=== PATIENT | male | born 1975 | race Caucasian/White ===

== ENCOUNTER 2018-09-10 11:39 | Emergency (ER) | payer BC ==
[2018-09-10 13:28] LABS: Urine Blood NEGATIVE (NEG); Urine Glucose NEGATIVE (NEG); Urine Protein NEGATIVE (NEG)
[2018-09-10 13:57] LABS: Potassium 4.2 mmol/L (3.5-5.1)
--- NOTE | 2018-09-10 14:08 | EDPHYS ---
Physician Documentation [facility] Name: Christian Tatmu II Age: 43 yrs Sex: Male : 1975 Arrival Date: 09/10/2018 Time: 11:42 Bed 20 Private MD: Tree Castillo ED Physician Bienvenido Patel HPI: 09/10 14:03 This 43 yrs old Male presents to ER via Ambulatory with complaints of Back kb Pain. 14:03 The patient presents with pain that is acute, and tenderness. The symptoms are located kb in the left low back and left mid back. The pain does not radiate. 14:03 Onset: The symptoms/episode began/occurred 2 week(s) ago. Associated signs and kb symptoms: The patient has no apparent associated signs or symptoms. The problem was sustained when lifting weights. Modifying factors: The patient symptoms are alleviated by nothing, the patient symptoms are aggravated by any movement. Severity of symptoms: At their worst the symptoms were moderate, in the emergency department the symptoms are unchanged. The patient has not experienced similar symptoms in the past. The patient has not recently seen a physician. Pt reports left low back, flank pain that started 2 weeks ago. States pain is worse with movement. May have started after lifting weights, but doesn't know if that is the cause. Concerned about his kidney because he takes a lot of supplements. . Historical: - Allergies: 12:20 No Known Allergies; rb1 - Home Meds: 12:20 None [Active]; rb1 - PMHx: 12:20 None; rb1 - PSHx: 12:20 facial; rb1 ROS: 14:02 Constitutional: Negative for fever, chills, and weight loss, Neck: Negative for injury, kb pain, and swelling, Cardiovascular: Negative for chest pain, palpitations, and edema, Respiratory: Negative for shortness of breath, cough, wheezing, and pleuritic chest pain, Abdomen/GI: Negative for abdominal pain, nausea, vomiting, diarrhea, and constipation, : Negative for injury, bleeding, discharge, and swelling, MS/Extremity: Negative for injury and deformity, Skin: Negative for injury, rash, and discoloration, Neuro: Negative for headache, weakness, numbness, tingling, and seizure. 14:02 Back: Positive for flank pain, on the left. Exam: 14:02 Constitutional: This is a well developed, well nourished patient who is awake, alert, kb and in no acute distress. Head/Face: Normocephalic, atraumatic. Neck: Trachea midline, no thyromegaly or masses palpated, and no cervical lymphadenopathy. Supple, full range of motion without nuchal rigidity, or vertebral point tenderness. No Meningismus. Chest/axilla: Normal chest wall appearance and motion. Nontender with no deformity. No lesions are appreciated. Cardiovascular: Regular rate and rhythm with a normal S1 and S2. No gallops, murmurs, or rubs. Normal PMI, no JVD. No pulse deficits. Respiratory: Lungs have equal breath sounds bilaterally, clear to auscultation and percussion. No rales, rhonchi or wheezes noted. No increased work of breathing, no retractions or nasal flaring. Abdomen/GI: Soft, non-tender, with normal bowel sounds. No distension or tympany. No guarding or rebound. No evidence of tenderness throughout. Back: No spinal tenderness. No costovertebral tenderness. Full range of motion. Skin: Warm, dry with normal turgor. Normal color with no rashes, no lesions, and no evidence of cellulitis. MS/ Extremity: Pulses equal, no cyanosis. Neurovascular intact. Full, normal range of motion. Neuro: Awake and alert, GCS 15, oriented to person, place, time, and situation. Cranial nerves II-XII grossly intact. Motor strength 5/5 in all extremities. Sensory grossly intact. Cerebellar exam normal. Normal gait. Vital Signs: 12:20 BP 138 / 74; Pulse 59; Resp 16; Temp 98.2(O); Pulse Ox 99% ; Weight 106.59 kg; Height 6 rb1 ft. 1 in. (185.42 cm); Pain 6/10; 12:20 Body Mass Index 31.00 (106.59 kg, 185.42 cm) rb1 MDM: 12:46 Patient medically screened. kb 14:02 Data reviewed: vital signs, nurses notes. Data interpreted: Pulse oximetry: on room air kb is 99 %. Interpretation: normal. Counseling: I had a detailed discussion with the patient and/or guardian regarding: the historical points, exam findings, and any diagnostic results supporting the discharge/admit diagnosis, lab results, the need for outpatient follow up, a family practitioner, to return to the emergency department if symptoms worsen or persist or if there are any questions or concerns that arise at home. 09/10 13:10 Order name: Basic Metabolic Panel; Complete Time: 14:02 kb 09/10 13:11 Order name: Urine Dipstick--Ancillary (enter results); Complete Time: 13:36 kb 09/10 13:01 Order name: Urine Dipstick-Ancillary (obtain specimen); Complete Time: 13:25 kb Administered Medications: No medications were administered Disposition: 09/10/18 14:07 Discharged to Home. Impression: Low back pain, Muscle spasm of back. - Condition is Stable. - Discharge Instructions: Musculoskeletal Pain, Back Injury Prevention, [id number]-Iovd, Back Pain, Adult, Gyqa-pr-Rliw, Back Exercises, Jsvx-zi-[id number]. - Prescriptions for Cyclobenzaprine 10 mg Oral Tablet - take 1 tablet by ORAL route every 8 hours As needed; 21 tablet. - Work release form, Medication Reconciliation Form, Thank You Letter, Antibiotic Education, Prescription Opioid Use form. - Follow up: Emergency Department; When: As needed; Reason: Worsening of condition. Follow up: Private Physician; When: 2 - 3 days; Reason: Recheck today's complaints, Continuance of care, Re-evaluation by your physician. Addendum: 09/12/2018 07:03 Co-signature as Attending Physician, Bienvenido Patel MD. r n Signatures: Dispatcher [employer] EDMS Cheryl Lema, SQL SSIS DEVELOPER-C SQL SSIS DEVELOPER-Ckb Bienvenido Patel MD MD rn Smirch, Shelby, RN RN ss Barber, Rebecca, RN RN rb1 Corrections: (The following items were deleted from the chart) 09/10 14:20 14:07 09/10/2018 14:07 Discharged to Home. Impression: Low back pain; Muscle spasm of ss back. Condition is Stable. Forms are Medication Reconciliation Form, Thank You Letter, Antibiotic Education, Prescription Opioid Use. Follow up: Emergency Department; When: As needed; Reason: Worsening of condition. Follow up: Private Physician; When: 2 - 3 days; Reason: Recheck today's complaints, Continuance of care, Re-evaluation by your physician. kb
--- NOTE | 2018-09-10 14:08 | ER ---
Nurse's Notes [facility] Name: Christian Tatum II Age: 43 yrs Sex: Male : 1975 Arrival Date: 09/10/2018 Time: 11:42 Bed 20 Private MD: Tree Castillo Diagnosis: Low back pain;Muscle spasm of back Presentation: 09/10 12:16 Presenting complaint: Patient states: c/o left low back pain 6/10, does not radiate. rb1 Denies NVD, fever. Transition of care: patient was not received from another setting of care. Onset of symptoms Onset of symptoms was August 30, 2018. Risk Assessment: Do you want to hurt yourself or someone else? Patient reports no desire to harm self or others. Initial Sepsis Screen: Does the patient meet any 2 criteria? No. Patient's initial sepsis screen is negative. Does the patient have a suspected source of infection?. Care prior to arrival: Medication(s) given: Back Quell. 12:16 Method Of Arrival: Ambulatory rb1 12:16 Acuity: SHANIQUE 3 rb1 Historical: - Allergies: 12:20 No Known Allergies; rb1 - Home Meds: 12:20 None [Active]; rb1 - PMHx: 12:20 None; rb1 - PSHx: 12:20 facial; rb1 Screenin:04 Abuse screen: Denies threats or abuse. Denies injuries from another. Nutritional aj1 screening: No deficits noted. Tuberculosis screening: No symptoms or risk factors identified. Assessment: 13:04 General: Appears in no apparent distress. uncomfortable, Behavior is calm, cooperative, aj1 appropriate for age. Pain: Complains of pain in left low back Pain does not radiate. Pain currently is 6 out of 10 on a pain scale. Neuro: Level of Consciousness is awake, alert, obeys commands, Oriented to person, place, time, situation. Cardiovascular: Patient's skin is warm and dry. Respiratory: Airway is patent Respiratory effort is even, unlabored, Respiratory pattern is regular, symmetrical. GI: No signs and/or symptoms were reported involving the gastrointestinal system. : No signs and/or symptoms were reported regarding the genitourinary system. EENT: No signs and/or symptoms were reported regarding the EENT system. Derm: No signs and/or symptoms reported regarding the dermatologic system. Skin is pink, warm \T\ dry. normal. Musculoskeletal: Range of motion: intact in all extremities. 14:05 Reassessment: Patient appears in no apparent distress at this time. No changes from aj1 previously documented assessment. Patient and/or family updated on plan of care and expected duration. Pain level reassessed. Patient is alert, oriented x 3, equal unlabored respirations, skin warm/dry/pink. Vital Signs: 12:20 BP 138 / 74; Pulse 59; Resp 16; Temp 98.2(O); Pulse Ox 99% ; Weight 106.59 kg; Height 6 rb1 ft. 1 in. (185.42 cm); Pain 6/10; 12:20 Body Mass Index 31.00 (106.59 kg, 185.42 cm) rb1 ED Course: 11:42 Patient arrived in ED. mr 11:42 Tree Castillo MD is Private Physician. mr 12:19 Triage completed. rb1 12:20 Arm band placed on right wrist. rb1 12:45 Rosanna Nieto RN is Primary Nurse. aj1 12:46 Cheryl Lema FNP-C is PHCP. kb 12:46 Bienvenido Patel MD is Attending Physician. kb 13:04 Patient has correct armband on for positive identification. Bed in low position. Call aj1 light in reach. Side rails up X 1. 13:04 No provider procedures requiring assistance completed. aj1 13:46 Initial lab(s) drawn, by id, sent to lab. Inserted saline lock: 18 gauge in left 5 antecubital area, using aseptic technique. Blood collected. 13:50 Basic Metabolic Panel Sent. [facility] 14:20 IV discontinued, intact, bleeding controlled, No redness/swelling at site. Pressure ss dressing applied. Administered Medications: No medications were administered Outcome: 14:07 Discharge ordered by . kb 14:20 Discharged to home ambulatory. ss 14:20 Condition: good 14:20 Discharge instructions given to patient, family, Instructed on discharge instructions, follow up and referral plans. medication usage, Demonstrated understanding of instructions, follow-up care, medications, Prescriptions given X 1. 14:20 Patient left the ED. Signatures: Cheryl eLma FNP-C FNP-Rosanna Chiu RN RN [facility] Ana Anaya mr Alba Martin RN RN ss Viji Little, RN RN rb1 Krystal Zuniga [facility]
== END 2018-09-10 14:20 | disposition home or self-care (01) ==
LOC: ER 11:39
DX: M62.830 Muscle spasm of back (principal)
CPT/HCPCS: 36415; 80048; 81003; 99283

== ENCOUNTER 2018-12-31 13:41 | Emergency (ER) | payer BC ==
--- NOTE | 2018-12-31 15:01 | ER ---
Nurse's Notes [facility] Name: Christian Tatum II Age: 43 yrs Sex: Male : 1975 Arrival Date: 12/31/2018 Time: 13:42 Bed 28 Private MD: Diagnosis: Local infection of the skin and subcutaneous tissue, unspecified;Tinea pedis Presentation: 12/31 13:58 Presenting complaint: Patient states: bilateral feet blisters, possibly athlete's feet. sv Started after going roller skating. Transition of care: patient was not received from another setting of care. Onset of symptoms was November 2018. Risk Assessment: Do you want to hurt yourself or someone else? Patient reports no desire to harm self or others. Initial Sepsis Screen: Does the patient meet any 2 criteria? No. Patient's initial sepsis screen is negative. Does the patient have a suspected source of infection? No. Patient's initial sepsis screen is negative. Care prior to arrival: None. 13:58 Method Of Arrival: Ambulatory sv 13:58 Acuity: SHANIQUE 5 sv Triage Assessment: 14:00 General: Appears in no apparent distress. comfortable, Behavior is calm, cooperative, sv appropriate for age. Pain: Denies pain. Neuro: Level of Consciousness is awake, alert, obeys commands, Oriented to person, place, time, situation, Gait is steady. Respiratory: Respiratory effort is even, unlabored, Respiratory pattern is regular, symmetrical. Historical: - Allergies: 13:59 No Known Allergies; sv - PMHx: 13:59 None; sv - PSHx: 13:59 facial; sv - Immunization history:: Adult Immunizations up to date. - Social history:: Smoking status: Patient/guardian denies using tobacco. - Ebola Screening: : No symptoms or risks identified at this time. Screenin:24 Abuse screen: Denies threats or abuse. Denies injuries from another. Nutritional rv screening: No deficits noted. Tuberculosis screening: No symptoms or risk factors identified. Fall Risk None identified. Assessment: 15:23 General: Appears in no apparent distress. comfortable, Behavior is calm, cooperative. rv Pain: Complains of pain in left foot and right foot. Neuro: Level of Consciousness is awake, alert, obeys commands, Oriented to person, place, time, situation. Cardiovascular: Patient's skin is warm and dry. Respiratory: Airway is patent. GI: No signs and/or symptoms were reported involving the gastrointestinal system. : No signs and/or symptoms were reported regarding the genitourinary system. EENT: No signs and/or symptoms were reported regarding the EENT system. Derm: Skin is intact. Musculoskeletal: No signs and/or symptoms reported regarding the musculoskeletal system. Vital Signs: 14:00 BP 135 / 79; Pulse 53; Resp 18; Temp 98; Pulse Ox 99% ; Weight 106.59 kg; Height 6 ft. sv 2 in. (187.96 cm); 14:00 Body Mass Index 30.17 (106.59 kg, 187.96 cm) sv ED Course: 13:42 Patient arrived in ED. as 13:59 Triage completed. sv 14:00 Arm band placed on Patient placed in waiting room, Patient notified of wait time. sv 14:04 Cheryl Lem[facility]-C [facility]. kb 14:04 Juan Carlos Paniagua MD is Attending Physician. kb 15:13 Jc March, RADHA is Primary Nurse. rv 15:24 No provider procedures requiring assistance completed. Patient did not have IV access rv during this emergency room visit. 15:25 Patient has correct armband on for positive identification. Bed in low position. Call rv light in reach. Side rails up X 1. Pulse ox on. NIBP on. Administered Medications: No medications were administered Outcome: 15:00 Discharge ordered by . kb 15:25 Discharged to home ambulatory. rv 15:25 Condition: good 15:25 Discharge instructions given to patient, Instructed on discharge instructions, follow up and referral plans. medication usage, Demonstrated understanding of instructions, follow-up care, medications, Prescriptions given X 1. 15:25 Patient left the ED. rv Signatures: Cheryl Lema FNP-C FNP-Ckb Verde, Stephanie, RN RN Marce Morales as Jc March, RADHA RN rv Corrections: (The following items were deleted from the chart) 14:00 14:00 Pulse 53bpm; Resp 18bpm; Pulse Ox 99%; Temp 98F; 106.59 kg; Height 6 ft. 2 in.; sv BMI: 30.1; sv
--- NOTE | 2018-12-31 15:01 | EDPHYS ---
Physician Documentation [facility] Name: Christian Tatum II Age: 43 yrs Sex: Male : 1975 Arrival Date: 12/31/2018 Time: 13:42 Bed 28 Private MD: ED Physician Juan Carlos Paniagua HPI: 12/31 14:54 This 43 yrs old Male presents to ER via Ambulatory with complaints of Foot kb Problem- Blisters. 14:55 The patient's rash thought to be caused by athlete's foot. The rash is located on the kb right foot and left foot. The rash can be described as erythematous, vesicular. Onset: The symptoms/episode began/occurred 6 day(s) ago. Associated signs and symptoms: Pertinent positives: burning sensation, itching. Severity of symptoms: At their worst the symptoms were mild moderate in the emergency department the symptoms are unchanged. The patient has not experienced similar symptoms in the past. The patient has not recently seen a physician. Pt reports he developed athlete's foot on Monday. Has been doing every home remedy that he has found on [employer], including apple cider vinegar and listerine soaks and tenactin. States he started getting swelling and blisters so that is why he came in. Also reports rash is spreading to left foot now. . Historical: - Allergies: 13:59 No Known Allergies; sv - PMHx: 13:59 None; sv - PSHx: 13:59 facial; sv - Immunization history:: Adult Immunizations up to date. - Social history:: Smoking status: Patient/guardian denies using tobacco. - Ebola Screening: : No symptoms or risks identified at this time. ROS: 14:48 Constitutional: Negative for fever, chills, and weight loss, Cardiovascular: Negative kb for chest pain, palpitations, and edema, Respiratory: Negative for shortness of breath, cough, wheezing, and pleuritic chest pain, Abdomen/GI: Negative for abdominal pain, nausea, vomiting, diarrhea, and constipation, MS/Extremity: Negative for injury and deformity, Neuro: Negative for headache, weakness, numbness, tingling, and seizure. 14:48 Skin: Positive for erythema, swelling, vesicular lesions. Exam: 14:52 Constitutional: This is a well developed, well nourished patient who is awake, alert, kb and in no acute distress. Head/Face: Normocephalic, atraumatic. Neck: Trachea midline, no thyromegaly or masses palpated, and no cervical lymphadenopathy. Supple, full range of motion without nuchal rigidity, or vertebral point tenderness. No Meningismus. Chest/axilla: Normal chest wall appearance and motion. Nontender with no deformity. No lesions are appreciated. Cardiovascular: Regular rate and rhythm with a normal S1 and S2. No gallops, murmurs, or rubs. Normal PMI, no JVD. No pulse deficits. Respiratory: Lungs have equal breath sounds bilaterally, clear to auscultation and percussion. No rales, rhonchi or wheezes noted. No increased work of breathing, no retractions or nasal flaring. Abdomen/GI: Soft, non-tender, with normal bowel sounds. No distension or tympany. No guarding or rebound. No evidence of tenderness throughout. MS/ Extremity: Pulses equal, no cyanosis. Neurovascular intact. Full, normal range of motion. Neuro: Awake and alert, GCS 15, oriented to person, place, time, and situation. Cranial nerves II-XII grossly intact. Motor strength 5/5 in all extremities. Sensory grossly intact. Cerebellar exam normal. Normal gait. 14:52 Skin: Appearance: normal except for affected area, Color: erythematous, swelling, noted on the right second toe, right third toe and right fourth toe, that are mild, lesion(s), vesicle(s) noted, located on the right second toe and right third toe. Vital Signs: 14:00 BP 135 / 79; Pulse 53; Resp 18; Temp 98; Pulse Ox 99% ; Weight 106.59 kg; Height 6 ft. sv 2 in. (187.96 cm); 14:00 Body Mass Index 30.17 (106.59 kg, 187.96 cm) sv MDM: 14:27 Patient medically screened. kb 14:48 Data reviewed: vital signs, nurses notes. Data interpreted: Pulse oximetry: on room air kb is 99 %. Interpretation: normal. Counseling: I had a detailed discussion with the patient and/or guardian regarding: the historical points, exam findings, and any diagnostic results supporting the discharge/admit diagnosis, the need for outpatient follow up, a family practitioner, to return to the emergency department if symptoms worsen or persist or if there are any questions or concerns that arise at home. 14:58 ED course: Educated to stop the soaks and other home remedies and only use tenactin for kb the athlete's foot. Educated on need for antibiotics due to the redness, swelling and blistering. Pt doesn't not want to take antibiotics at this time because he is going in on Monday for collection for IVF. Educated that I will prescribe the antibiotics and he can started them after his appt.. Administered Medications: No medications were administered Disposition: 01/01 07:29 Co-signature as Attending Physician, Juan Carlos Paniagua MD I agree with the assessment and [place] [facility] plan of care. Disposition: 12/31/18 15:00 Discharged to Home. Impression: Local infection of the skin and subcutaneous tissue, unspecified, Tinea pedis. - Condition is Stable. - Discharge Instructions: Athlete's Foot, [id number]-[id number], Cellulitis, Adult, Wlpw-py-Ajza. - Prescriptions for Bactrim DS 800- 160 mg Oral Tablet - take 1 tablet by ORAL route every 12 hours for 7 days; 14 tablet. - Work release form, Medication Reconciliation Form, Thank You Letter, Antibiotic Education, Prescription Opioid Use form. - Follow up: Emergency Department; When: As needed; Reason: Worsening of condition. Follow up: Private Physician; When: 2 - 3 days; Reason: Recheck today's complaints, Continuance of care, Re-evaluation by your physician. Signatures: Cheryl Lema, Niyah Byrne RN RN sv Anderson, Corey, MD MD cha Vicente, Ronaldo RN RN rv Corrections: (The following items were deleted from the chart) 12/31 15:25 15:00 12/31/2018 15:00 Discharged to Home. Impression: Local infection of the skin and rv subcutaneous tissue, unspecified; Tinea pedis. Condition is Stable. Forms are Medication Reconciliation Form, Thank You Letter, Antibiotic Education, Prescription Opioid Use. Follow up: Emergency Department; When: As needed; Reason: Worsening of condition. Follow up: Private Physician; When: 2 - 3 days; Reason: Recheck today's complaints, Continuance of care, Re-evaluation by your physician. kb
== END 2018-12-31 15:25 | disposition home or self-care (01) ==
LOC: ER 13:41
DX: B35.3 Tinea pedis (principal); L08.9 Local infection of the skin and subcutaneous tissue, unspecified
CPT/HCPCS: 99283